=== PATIENT | female | born 1990 ===

== ENCOUNTER 2019-08-03 05:34 | Inpatient (IN) | payer OTHER ==
--- OUTSIDE RECORDS SUMMARY | 2019-08-03 05:36 | XMS REPORT ---
:1990 Author Organization [facility] t Address [address] [place] [address] Care Team Providers Name Role Phone Stella Brennan Attending Clinician [phone] Doctor Unassigned, Name Attending Clinician Unavailable Problems This patient has no known problems. Allergies, Adverse Reactions, Alerts This patient has no known allergies or adverse reactions. Medications This patient has no known medications. Procedures This patient has no known procedures. Encounters Start End Encounter Admission Attending Care Care Encounter Source Date/Time Date/Time Type Type Clinicians Facility Department ID 2019-07-30 2019-07-30 Routine JULISSA Hanley [id number] 14:33:32 15:19:14 Stella C DRUG ABUSE PROGRAM COORDINATOR [id number] Visit REGIONAL [id number] MATERNAL [id number] & CHILD 107 [facility] 2019-07-22 2019-07-22 Routine Dayan DCLEONIDES [id number] 09:08:09 09:23:09 Stella C DRUG ABUSE PROGRAM COORDINATOR [id number] Visit REGIONAL [id number] MATERNAL [id number] & CHILD 107 [facility] 2019-06-04 2019-06-04 Telemedici JULISSA Hanley [id number] 15:41:58 16:51:51 ne Visit Stella C DRUG ABUSE PROGRAM COORDINATOR [id number] REGIONAL [id number] MATERNAL [id number] & CHILD 107 [facility] 2019-05-21 2019-05-21 Orders Doctor KELLY [id number] 00:00:00 00:00:00 Only Unassigned, MELODY [id number] [place] [facility] [id number] Results This patient has no known results.
--- OUTSIDE RECORDS SUMMARY | 2019-08-03 05:37 | XMS REPORT | Summary of Care ---
:1990 Author Organization [facility] Address [address] [place] [address] Care Team Providers Name Role Phone Stella Hanley [facility] Primary Care Provider [phone] Reason for Visit Reason Comments Care Encounter Details Date Type Department Care Team Description 05/06/2019 Routine [facility]P- Shelly Hanley vision of high risk , antepartum (Primary Dx); [facility] 1108 [facility] [address] [facility] [address] [facility] [phone] [place] [address] Allergies No Known Allergiesdocumented as of this encounter (statuses as of 05/06/2019) Medications No known medicationsdocumented as of this encounter (statuses as of 05/06/2019) Active Problems Problem Noted Date Supervision of high-risk 12/18/2018 Multiparity 12/18/2018 Over weight 12/18/2018 Estimated Date of Delivery Comments Yes 08/07/2019 Based on last menstr ual period of 10/31/2018 documented as of this encounter (statuses as of 05/06/2019) Social History Tobacco Use Types Packs/Day Years Used Date Never Smoker Smokeless Tobacco: Never Used Alcohol Use Drinks/Week oz/Week Comments Never Alcohol Habits Answer Date Recorded How often do you have a drink containing alcohol? Never 12/18/2018 How many drinks containing alcohol do you have on a typical Not asked day when you are drinking? How often do you have six or more drinks on one occasion? No t asked Estimated Date of Delivery Comments Yes 08/07/2019 Based on last menstr ual period of 10/31/2018 Sex Assigned at Date Recorded Not on file Job Start Date Occupation Industry Not on file Not on file Not on file Travel History Travel Start Travel End No recent travel history available. documented as of this encounter Last Filed Vital Signs Vital Sign Reading Time Taken Comments Blood Pressure 82/57 05/06/2019 2:38 PM VOIP ENGINEER Pulse 81 05/06/2019 2:18 PM VOIP ENGINEER Temperature 36.3 C (97.3 F) 05/06/2019 2:18 PM VOIP ENGINEER Respiratory Rate 16 05/06/2019 2:18 PM VOIP ENGINEER Oxygen Saturation - - Inhaled Oxygen Concentration - - Weight 66.8 kg (147 lb 4 oz) 05/06/2019 2:18 PM VOIP ENGINEER Height 152.4 cm (5') 05/06/2019 2:18 PM VOIP ENGINEER Body Mass Index 28.76 05/06/2019 2:18 PM VOIP ENGINEER documented in this encounter Progress Notes Stella Hanley, WHCNP - 05/06/2019 1:45 PM CST Chief complaint: Chief Complaint Patient presents with Care HPI CC: Follow Up Visit Henrietta Echevarria is a 28 year old, , or other female. Patient's last menstrual period was 10/31/2018. She is 26w5d with an intrauterine . Her estimated date of delivery is 08/07/2019, by Last Menstrual Period. She has no complaints today. She reports +FM and denies contractions, LOF and bleeding today. Histories OB History Para Term AB Living 2 1 1 1 SAB TAB Ectopic Multiple Live Births 1 # Outcome Date GA Lbr Sergo/2nd Weight Sex Delivery Anes PTL Lv 2 Current 1 Term 01/19/15 40w0d 6 lb (2.722 kg) M NORMAL SPONT LELO No past medical history on file. No family history on file. No family status information on file. No past surgical history on file. Social History Socioeconomic History Marital status: Spouse name: Not on file Number of children: Not on file Years of education: Not on file Highest education level: Not on file Occupational History Not on file Social Needs Financial resource strain: Not on file Food insecurity: Worry: Not on file Inability: Not on file Transportation needs: Medical: Not on file Non-medical: Not on file Tobacco Use Smoking status: Never Smoker Smokeless tobacco: Never Used Substance and Sexual Activity Alcohol use: Never Frequency: Never Drug use: Never Sexual activity: Yes Partners: Male control/protection: None Comment: Last intercourse: 12/10/2018 Lifestyle Physical activity: Days per week: Not on file Minutes per session: Not on file Stress: Not on file Relationships Social connections: Talks on phone: Not on file Gets together: Not on file Attends jainism service: Not on file Active member of club or organization: Not on file Attends meetings of clubs or organizations: Not on file Relationship status: Not on file Intimate partner violence: Fear of current or ex partner: Not on file Emotionally abused: Not on file Physically abused: Not on file Forced sexual activity: Not on file Other Topics Concern Not on file Social History Narrative Patient lives with son, patient feels safe at home. Not cats. Social History Substance and Sexual Activity Sexual Activity Yes Partners: Male control/protection: None Comment: Last intercourse: 12/10/2018 Labs Labs are pending. and Routine Visit on 04/16/2019 Component Date Value POCT U SP GRAV 04/16/2019 . POCT PH U 04/16/2019 . POCT U LEUK EST 04/16/2019 . POCT U NIT 04/16/2019 . POCT U PROT 04/16/2019 Trace POCT U GLU 04/16/2019 Neg POCT U KETONE 04/16/2019 . POCT U UROBILI 04/16/2019 . POCT U BILI 04/16/2019 . POCT U BLD 04/16/2019 . Routine Visit on 03/19/2019 Component Date Value POCT U SP GRAV 03/19/2019 . POCT PH U 03/19/2019 . POCT U LEUK EST 03/19/2019 . POCT U NIT 03/19/2019 . POCT U PROT 03/19/2019 Trace POCT U GLU 03/19/2019 Neg POCT U KETONE 03/19/2019 . POCT U UROBILI 03/19/2019 . POCT U BILI 03/19/2019 . POCT U BLD 03/19/2019 . Radiology No new radiology. Allergies Henrietta has No Known Allergies. Medications Henrietta currently has no medications in their medication list. Review of Systems Constitutional: Negative. HENT: Negative. Eyes: Negative. Respiratory: Negative. Breasts: Negative. Cardiovascular: Negative. Gastrointestinal: Negative. Genitourinary: Negative. Musculoskeletal: Negative. Skin: Negative. Neurological: Negative. Psychiatric/Behavioral: Negative. Endocrine: Endocrine negative BP (!) 82/57 (BP Location: Right arm, Patient Position: Sitting, BP CUFF SIZE: Adult Medium) | Pulse 81 | Temp 36.3 C (97.3 F) (Oral) | Resp 16 | Ht 5' (1.524 m) | Wt 147 lb 4 oz (66.8 kg) | LMP 10/31/2018 | BMI 28.76 kg/m Pregravid BMI: 26.8 Physical Exam PHYSICAL: General Exam: Neurological: Normal Abdomen: Normal gravid Extremities: Normal Pelvic Exam: Uterus: 25 Weeks Assessment/Plan Return to clinic in 2 weeks. Denies zika virus risk, signs and symptoms such as fever,rash,joint pain, conjunctivitis (red eyes),muscle pain, headaches; outside [place] travel to areas affected by zika, and FOB exposure to zika. Educated on use of mosquito repellent. Supervision of high risk , antepartum (primary encounter diagnosis) Multiparity Comment: routine Plan: POCT URINALYSIS W SPECIFIC GRAVITY, Glucose 1 Hour Post Prandial, CBC with Differential, HIV 1/2 AG-AB WITH REFLEX, GALV ONLY - SYPHILIS IGG/IGM, TDAP VACCINE, >11 YRS, IM (Do not give before 20 weeks), CBC WITH DIFFERENTIAL This visit did not involve counseling and coordination that comprised more than 50% of the visit time. AUDIE Stroud 05/06/2019 2:46 PM ENGINEER documented in this encounter Plan of Treatment Date Type Specialty Care Team Description 05/06/2019 Formula Room Worker Visit Maternal Stella Hanley WHCNP [address] [place], [place] [address] [phone] 05/21/2019 Routine Visit OB Satellites Rosa Hanley WHCNP [address] [place], [place] [address] [phone] Name Type Priority Associated Diagnoses Order S chedule Glucose 1 Hour Post LAB Routine Supervision of high O rdered: Prandial risk , 05/06/2019 antepartum CBC with Differential LAB Routine Supervision of high Ordered: risk , 05/06/2019 antepartum HIV 1/2 AG-AB WITH LAB Routine Supervision of high Ex pected: REFLEX risk , 05/19/2019, antepartum Expires: 05/06/2020 GALV ONLY - SYPHILIS LAB Routine Supervision of high Expected: IGG/IGM risk , 05/19/2019, antepartum Expires: 05/06/2020 TDAP VACCINE, >11 YRS, IMMUNIZATION/I Routine Supervision of igh Expected: IM (Do not give before NJECTION risk , , 20 weeks) antepartum Expires: 06/03/2019 CBC WITH DIFFERENTIAL LAB Routine Supervision of high Ordered: risk , 05/06/2019 antepartum Health Maintenance Due Date Last Done Comments DTaP,Tdap,and Td Vaccines (1 - 05/06/2020 P ostponed from 2000 Tdap) (Alternative Yfn delines) INFLUENZA VACCINE (#1) 2020 Postponed from 11/10/2018 (Refused) PAP SMEAR 12/18/2021 12/18/2018 PNEUMOCOCCAL 0-64 YEARS COMBINED Aged Out No longer eligible based on SERIES patient's age to complete this topic documented as of this encounter Procedures Procedure Name Priority Date/Time Associated Diagnosis Comme nts POCT URINALYSIS Routine 05/06/2019 2:20 PM Supervision of [facility] Results for this VOIP ENGINEER risk , procedure ar e in antepartum the results section. documented in this encounter Results POCT URINALYSIS W SPECIFIC GRAVITY (05/06/2019 2:20 PM VOIP ENGINEER) Pathologist Sig nature POCT U SP GRAV . 1.005 - 1.025 mg/dl POCT PH U . 5 - 8 mg/dl POCT U LEUK EST . Negative - Negative POCT U NIT . Negative - Negative POCT U PROT Trace Negative - Negative POCT U GLU Neg Negative - Negative POCT U KETONE . Negative - Negative POCT U UROBILI . 0.2 - 1 mg/dl POCT U BILI . Negative - Negative POCT U BLD . Negative - Negative POCT U COLOR POCT U APPEAR Specimen Urine - URINE, CLEAN CATCH documented in this encounter Visit Diagnoses Diagnosis Supervision of high risk , ante - Primary Multiparity documented in this encounter Insurance Payer Benefit Plan / Subscriber ID Effective Phone Address T e Group Dates [facility] [id number] 2019-Danny [phone] [address] [employer] [phone] [place] [address] documented as of this encounter Advance Directives Name Relationship Healthcare Agent Relationship Co mmunication Pop Echevarria Friend Primary healthcare agent "
--- OUTSIDE RECORDS SUMMARY | 2019-08-03 05:37 | XMS REPORT | Summary of Care ---
:1990 Author Organization [facility] Address [address] [place] [address] Care Team Providers Name Role Phone Stella Hanley [facility] Primary Care Provider [phone] Reason for Visit Reason Comments ULTRASOUND (Routine) Status Reason Specialty Diagnoses / Referred By Referred To Procedures Contact Contact Closed OG-OBSTETRICS & Diagnoses Recheck Left ventricle in 4 weeks, not well seen Dave Garcia, Rodrigo ltrasound GYNECOLOGY / Procedures CONSULT MATERNAL MEDICINE ULTRASOUND ULTRASOUND 45 1108 [facility] Maternal [address] [facility] Medicine [id number] [place] [address] Phone: Fax: Encounter Details Date Type Department Care Team Description 05/06/2019 Maintenance Supervisor Visit [facility] Duc Hanley, [facility] [address] [place] [address] Encounter for other Ultrasound- [place] Kelvin Roa MD [address] [place] [address] screening [address] [place] [address] Allergies No Known Allergiesdocumented as of this [...] of this encounter Last Filed Vital Signs Not on filedocumented in this encounter Plan of Treatment Date Type Specialty Care Team Description 05/21/2019 Routine Visit OB Satellites Rosa Hanley, [facility] [address] [place], [place] [address] [phone] Health Maintenance Due Date Last Done Comments DTaP,Tdap,and Td Vaccines (1 - 05/06/2020 P ostponed from 2000 Tdap) (Alternative Yfn delines) INFLUENZA VACCINE (#1) 2020 Postponed from 11/10/2018 (Refused) PAP SMEAR 12/18/2021 12/18/2018 PNEUMOCOCCAL 0-64 YEARS COMBINED Aged Out No longer eligible based on SERIES patient's age to complete this topic documented as of this encounter Results Not on filedocumented in this encounter Visit Diagnoses Diagnosis Encounter for other screening follow-up documented in this encounter Insurance Payer Benefit Plan / Subscriber ID Effective Phone Address T [facility] Group Dates [facility] [id number] 2019-Preskimberlee [phone] [address] [employer] [facility] [phone] [place] [address] documented as of this encounter Advance Directives Name Relationship Healthcare Agent Relationship Co mmunication Pop Echevarria Friend Primary healthcare agent
--- OUTSIDE RECORDS SUMMARY | 2019-08-03 05:38 | XMS REPORT | Summary of Care ---
:1990 Author Organization [facility] Address [address] [place] [address] Care Team Providers Name Role Phone Stella Hanley [facility] Primary Care Provider [phone] Reason for Visit Reason Comments Care Encounter Details Date Type Department Care Team Description 05/06/2019 Routine [facility]P- Shelly Hanley vision of high risk , antepartum (Primary Dx); [facility] 1108 [facility] [address] [facility] [address] [facility] [phone] [place] [address] Allergies No Known Allergiesdocumented as [...] Comments Blood Pressure 82/57 05/06/2019 2:38 PM DISTRIBUTION ASSOCIATE Pulse 81 05/06/2019 2:18 PM DISTRIBUTION ASSOCIATE Temperature 36.3 C (97.3 F) 05/06/2019 2:18 PM DISTRIBUTION ASSOCIATE Respiratory Rate 16 05/06/2019 2:18 PM DISTRIBUTION ASSOCIATE Oxygen Saturation - - Inhaled Oxygen Concentration - - Weight 66.8 kg (147 lb 4 oz) 05/06/2019 2:18 PM DISTRIBUTION ASSOCIATE Height 152.4 cm (5') 05/06/2019 2:18 PM DISTRIBUTION ASSOCIATE Body Mass Index 28.76 05/06/2019 2:18 PM DISTRIBUTION ASSOCIATE documented in this encounter Progress Notes Stella [...] file Gets together: Not on file Attends quaker service: Not on file Active member of [...] visit time. AUDIE Stroud 05/06/2019 2:46 PM RIBUTION ASSOCIATE documented in this encounter Plan of Treatment Date Type Specialty Care Team Description 05/21/2019 Routine Visit OB Satellites Rosa Hanley [facility]NP [address] [place], [place] [address] [phone] Name Type Priority Associated Diagnoses Order S [...] VACCINE, >11 YRS, IMMUNIZATION/I Routine Supervision of h igh Expected: IM (Do not give before [...] URINALYSIS Routine 05/06/2019 2:20 PM Supervision of [facility] Results for this DISTRIBUTION ASSOCIATE risk , procedure ar e in antepartum the results section. documented in this encounter Results POCT URINALYSIS W SPECIFIC GRAVITY (05/06/2019 2:20 PM DISTRIBUTION ASSOCIATE) Pathologist Sig nature POCT U SP GRAV [...] / Subscriber ID Effective Phone Address T ype Group Dates [facility] [id number] 2019-Danny [phone] [address] [employer] [phone] [place] [address] documented as of this encounter Advance Directives Name Relationship Healthcare Agent Relationship Co mmunication Pop Echevarria Friend Primary healthcare agent "
--- OUTSIDE RECORDS SUMMARY | 2019-08-03 05:38 | XMS REPORT | Summary of Care ---
:1990 Author Organization [facility] Address [address] [place] [address] Care Team Providers Name Role Phone Stella Hanley [facility] Primary Care Provider [phone] Encounter Details Date Type Department Care Team Description 05/06/2019 Abstract [facility] Stella Gal[place], [address] [place] [address] [address] [facility] [phone] [place], [place] [address] [phone] Allergies No Known Allergiesdocumented as of this [...] 05/21/2019 Routine Visit OB Satellites Rosa Hanley, WHCNP [address] [place], [place] [address] [phone] Health Maintenance Due Date Last Done Comments DTaP,Tdap,and Td Vaccines (1 - 05/06/2020 P ostponed from 2000 Tdap) (Alternative Yfn delines) INFLUENZA VACCINE (#1) 2020 Postponed from 11/10/2018 (Refused) PAP SMEAR 12/18/2021 12/18/2018 PNEUMOCOCCAL 0-64 YEARS COMBINED Aged Out No longer eligible based on SERIES patient's age to complete this topic documented as of this encounter Results Not on filedocumented in this encounter Insurance Payer Benefit Plan / Subscriber ID Effective Phone Address T e Group Dates [facility] [id number] 2019-Danny [phone] [address] [employer] [address] [facility] [phone] [place] [address] documented as of this encounter Advance Directives Name Relationship Healthcare Agent Relationship Co mmunication Pop Echevarria Friend Primary healthcare agent
--- OUTSIDE RECORDS SUMMARY | 2019-08-03 05:38 | XMS REPORT | Summary of Care ---
:1990 Author Organization [facility] Address [address] [place] [address] Care Team Providers Name Role Phone Stella Hanley [facility] Primary Care Provider [phone] Reason for Visit Reason Comments Care Encounter Details Date Type Department Care Team Description 05/06/2019 Routine [facility] RMCHP- Shelly Hanley vision of high risk , antepartum (Primary Dx); [facility] [address] [facility] [address] [facility] [phone] [facility] [phone] [place] [address] Allergies No Known Allergiesdocumented as [...] Comments Blood Pressure 82/57 05/06/2019 2:38 PM FILM INSPECTOR Pulse 81 05/06/2019 2:18 PM FILM INSPECTOR Temperature 36.3 C (97.3 F) 05/06/2019 2:18 PM FILM INSPECTOR Respiratory Rate 16 05/06/2019 2:18 PM FILM INSPECTOR Oxygen Saturation - - Inhaled Oxygen Concentration - - Weight 66.8 kg (147 lb 4 oz) 05/06/2019 2:18 PM FILM INSPECTOR Height 152.4 cm (5') 05/06/2019 2:18 PM FILM INSPECTOR Body Mass Index 28.76 05/06/2019 2:18 PM FILM INSPECTOR documented in this encounter Progress Notes Stella [...] file Gets together: Not on file Attends mormonism service: Not on file Active member of [...] visit time. AUDIE Stroud 05/06/2019 2:46 PM INSPECTOR documented in this encounter Plan of Treatment Date Type Specialty Care Team Description 05/21/2019 Routine Visit OB Satellites Rosa Hanley [facility]CNP [address] [place], [place] [address] [phone] Name Type Priority Associated Diagnoses Date/Ti me Glucose 1 Hour Post LAB Routine Supervision of high georgiana vides 05/06/2019 3:40 PM Prandial , antepartum FILM INSPECTOR CBC with Differential LAB Routine Supervision of high risk 05/06/2019 3:40 PM , antepartum FILM INSPECTOR CBC WITH DIFFERENTIAL LAB Routine Supervision of high risk 05/06/2019 3:40 PM , antepartum FILM INSPECTOR Name Type Priority Associated Diagnoses Order S chedule HIV 1/2 AG-AB WITH LAB Routine Supervision of high Ex pected: REFLEX risk , 05/19/2019, antepartum Expires: 2020 GALV ONLY - SYPHILIS LAB Routine Supervision of high Expected: IGG/IGM risk , 05/19/2019, antepartum Expires: 2020 TDAP VACCINE, >11 IMMUNIZATION/IN Routine Supervision of high Expected: YRS, IM (Do not give JECTION risk , 11/2019, before 20 weeks) antepartum Expires: Health Maintenance Due Date Last Done Comments [...] URINALYSIS Routine 05/06/2019 2:20 PM Supervision of [facility] Results for this FILM INSPECTOR risk , procedure ar e in antepartum the results section. documented in this encounter Results POCT URINALYSIS W SPECIFIC GRAVITY (05/06/2019 2:20 PM FILM INSPECTOR) Pathologist Sig nature POCT U SP GRAV [...] / Subscriber ID Effective Phone Address T jono Group Dates HIM [facility] [id number] 2019-Danny [phone] [address] [employer] [phone] [place] [address] documented as of this encounter Advance Directives Name Relationship Healthcare Agent Relationship Co mmunication Pop Echevarria Friend Primary healthcare agent "
--- OUTSIDE RECORDS SUMMARY | 2019-08-03 05:39 | XMS REPORT | Summary of Care ---
:1990 Author Organization [facility] Address [address] [place] [address] Care Team Providers Name Role Phone Stella Hanley [facility] Primary Care Provider [phone] Reason for Visit Reason Comments Anemia Encounter Details Date Type Department Care Team Description 05/07/2019 [facility], Anemia [address] [place] [address] [phone] [place], [place] [address] [phone] Allergies No Known Allergiesdocumented as of this encounter (statuses as of 05/07/2019) Medications Medication Sig Dispensed Refills Start Date End Date Status ferrous sulfate 325 mg Take 1 tablet by 60 tablet 3 05/07/2019 Active (65 mg iron) mouth 2 (two) tabletIndications: times daily. Anemia of mother in , antepartum ascorbic acid, vitamin Take 1 tablet by 90 tablet 2 05/07/2019 Active C, 500 mg mouth 3 (three) tabletIndications: times daily. Anemia of mother in , antepartum documented as of this encounter (statuses as of 05/07/2019) Active Problems Problem Noted Date Anemia of mother in , antepartum 05/07/2019 Supervision of high-risk 12/18/2018 Multiparity 12/18/2018 Over weight 12/18/2018 Estimated Date of Delivery Comments Yes 08/07/2019 Based on last menstr ual period of 10/31/2018 documented as of this encounter (statuses as of 05/07/2019) Social History Tobacco Use Types Packs/Day Years [...] Description 05/21/2019 Routine Visit OB Satellites Rosa Hanlye, WHCNP [address] [place], [place] [address] [phone] Health Maintenance Due Date Last Done Comments [...] filedocumented in this encounter Visit Diagnoses Diagnosis Anemia of mother in , antepartu m - Primary Anemia, antepartum documented in this encounter Insurance Payer Benefit Plan / Subscriber ID Effective Phone Address T ype Group Dates [facility] [id number] 2019-Danny [phone] Risk I/OO HEALTH [employer] HEALTH CHOICE nt [phone] [place] [address] documented as of this encounter Advance Directives Name Relationship Healthcare Agent Relationship Co mmunication Pop Echevarria Friend Primary healthcare agent
--- OUTSIDE RECORDS SUMMARY | 2019-08-03 05:39 | XMS REPORT | Summary of Care ---
:1990 Author Organization [facility] Address [address] [place] [address] Care Team Providers Name Role Phone Stella Hanley [facility] Primary Care Provider [phone] Reason for Visit Reason Comments Anemia Encounter Details Date Type Department Care Team Description 05/07/2019 Telephone [facility] ngletStella Ford, Anemia [address] [place] [address] [phone] [place], [place] [address] [phone] Allergies No Known Allergiesdocumented as of this [...] OB Satellites Rosa Hanley, WHCNP [address], [place] [address] [phone] Health Maintenance Due Date Last Done Comments [...] Effective Phone Address T ype Group Dates [facility] [id number] 2019-Danny [phone] [address] [employer] [facility] [employer] HEALTH CHOICE nt [phone] [place] [address] documented as of this encounter Advance Directives Name Relationship Healthcare Agent Relationship Co mmunication Pop Echevarria Friend Primary healthcare agent
--- OUTSIDE RECORDS SUMMARY | 2019-08-03 05:40 | XMS REPORT | Summary of Care ---
:1990 Author Organization [facility] - Health Address [address] [place] [address] Care Team Providers Name Role Phone [facility] Primary Care Provider [phone] Encounter Details Date Type Department Care Team Description 04/14/2019 Orders Only [facility] Doctor Unassigned, No [address] [facility] Name [place] [id number] [address] [place] [address] Allergies No Known Allergiesdocumented as of this encounter (statuses as of 05/27/2019) Medications No known medicationsdocumented as of this encounter (statuses as of 05/27/2019) Active Problems Problem Noted Date Anemia of mother in , antepartum 05/07/2019 Supervision of high-risk 12/18/2018 Multiparity 12/18/2018 Over weight 12/18/2018 Estimated Date of Delivery Comments Yes 08/07/2019 Based on last menstr ual period of 10/31/2018 documented as of this encounter (statuses as of 05/27/2019) Social History Tobacco Use Types Packs/Day Years [...] Treatment Date Type Specialty Care Team Description 06/04/2019 Routine Visit OB Satellites Rosa Hanley, [facility] [address] [place], [place] [address] [phone] Health Maintenance Due Date Last Done Comments INFLUENZA VACCINE (#1) 2020 Postponed from 11/10/2018 (Refused) PAP SMEAR 12/18/2021 12/18/2018 DTaP,Tdap,and Td Vaccines (2 - 05/20/2029 05/21/2019 Td) PNEUMOCOCCAL 0-64 YEARS COMBINED Aged Out No longer eligible based on SERIES patient's age to complete this topic documented as of this encounter Procedures Procedure Name Priority Date/Time Associated Diagnosis Comme nts AUTHORIZATION FOR RELEASE Routine 04/14/2019 12:01 AM OF PHI GUNITE MIXER documented in this encounter Results Not on filedocumented in this encounter Insurance Payer Benefit Plan / Subscriber ID Effective Phone Address T e Group Dates [facility] [id number] 2019-Prese [phone] [employer] [facility] [employer] [phone] [place] [address] documented as of this encounter Advance Directives Name Relationship Healthcare Agent Relationship Co mmunication Pop Echevarria Friend Primary healthcare agent
--- OUTSIDE RECORDS SUMMARY | 2019-08-03 05:40 | XMS REPORT | Summary of Care ---
:1990 Author Organization [facility] Address [address] [place] [address] Care Team Providers Name Role Phone Stella Hanley [facility] Primary Care Provider [phone] Reason for Visit Reason Comments Care telehealth Encounter Details Date Type Department Care Team Description 06/04/2019 [facility]ley ervision of high risk in third trimester (Primary Dx); Tor Alcazar FRANKLIN Multiparity; [address] Anemia of mother in pregnanc y, antepartum [facility] [phone] [facility] [phone] [place] [address] Allergies No Known Allergiesdocumented as of this encounter (statuses as of 06/04/2019) Medications Medication Sig Dispensed Refills Start Date [...] as of this encounter (statuses as of 06/04/2019) Active Problems Problem Noted Date Anemia of mother in , antepartum 05/07/2019 Supervision of high-risk 12/18/2018 Multiparity 12/18/2018 Over weight 12/18/2018 Estimated Date of Delivery Comments Yes 08/07/2019 Based on last menstr ual period of 10/31/2018 documented as of this encounter (statuses as of 06/04/2019) Immunizations Name Administration Dates Next Due Tdap 05/21/2019 documented as of this encounter Social History Tobacco Use Types Packs/Day Years [...] Signs Not on filedocumented in this encounter Progress Notes Stella Hanley, [facility] - 06/04/2019 3:30 PM CDT TELEHEALTH NOTE Verbal consent obtained from Patient: Henrietta Echevarria for telehealth services provided below. Communication with patient was conducted via Telephone. Location of Patient: Home Location of Provider: Clinic Date of Service: 06/04/2019 Chief Complaint: visit HPI: Henrietta Echevarria is a 28 year old female with Past Medical History: Diagnosis Date Anemia of mother in , antepartum 05/07/2019 CC: Follow Up Visit Henrietta Echevarria is a 28 year old, , or other female. Patient's last menstrual period was 10/31/2018. She is 30w6d with an intrauterine . Her estimated date of delivery is 08/07/2019, by Last Menstrual Period. She has no complaints today. She reports +FM and denies contractions, LOF and bleeding today. Labs No new labs and Routine Visit on 05/21/2019 Component Date Value HIV 1/2 Ag-Ab with Reflex 05/21/2019 Negative HIV Semi-quantitative 05/21/2019 0.06 Syphilis IgG/IgM 05/21/2019 Non-reactive POCT U SP GRAV 05/21/2019 . POCT PH U 05/21/2019 . POCT U LEUK EST 05/21/2019 . POCT U NIT 05/21/2019 . POCT U PROT 05/21/2019 Trace POCT U GLU 05/21/2019 Neg POCT U KETONE 05/21/2019 . POCT U UROBILI 05/21/2019 . POCT U BILI 05/21/2019 . POCT U BLD 05/21/2019 . Routine Visit on 05/06/2019 Component Date Value POCT U SP GRAV 05/06/2019 . POCT PH U 05/06/2019 . POCT U LEUK EST 05/06/2019 . POCT U NIT 05/06/2019 . POCT U PROT 05/06/2019 Trace POCT U GLU 05/06/2019 Neg POCT U KETONE 05/06/2019 . POCT U UROBILI 05/06/2019 . POCT U BILI 05/06/2019 . POCT U BLD 05/06/2019 . GLUC 1 HR 05/06/2019 128 WBC 05/06/2019 9.12 RBC 05/06/2019 3.41* HGB 05/06/2019 8.9* HCT 05/06/2019 29.0* MCV 05/06/2019 85.0 MCH 05/06/2019 26.1 MCHC 05/06/2019 30.7* RDW-SD 05/06/2019 43.5 RDW-CV 05/06/2019 14.1 PLT 05/06/2019 228 MPV 05/06/2019 10.2 NRBC/100 WBC 05/06/2019 0.0 NRBC x10^3 05/06/2019 <0.01 GRAN MAT (NEUT) % 05/06/2019 57.1 IMM GRAN % 05/06/2019 0.70 LYMPH % 05/06/2019 28.8 MONO % 05/06/2019 10.1 EOS % 05/06/2019 2.6 BASO % 05/06/2019 0.7 GRAN MAT x10^3(ANC) 05/06/2019 5.21 IMM GRAN x10^3 05/06/2019 0.06 LYMPH x10^3 05/06/2019 2.63 MONO x10^3 05/06/2019 0.92 EOS x10^3 05/06/2019 0.24 BASO x10^3 05/06/2019 0.06 Routine Visit on 04/16/2019 Component Date Value [...] U BLD 03/19/2019 . Radiology No new radiology MEDICATIONS: No outpatient medications have been marked as taking for the 06/04/19 encounter (Telemedicine Visit) with Stella Hanley WHCNP. ROS Constitutional: negative Eyes: negative Ears: negative Nose/Sinuses: negative Mouth/Throat: negative Cardiovascular: negative Respiratory: negative Gastrointestinal: negative Genitourinary: negative Musculoskeletal: negative Integumentary: negative Neuro: negative Psych: negative Endocrine: negative Hem/Lymph: negative Allergy/Immunology: negative PHYSICAL: General Exam: Tele health visit Neurological: Normal Abdomen: Normal Gravid telehealth visit Extremities: Normal Pelvic Exam: Uterus: telehealth visit Weeks TELEHEALTH EXAM Constitutional: alert and in no distress Respiratory: breathing comfortably Neuro: answers questions appropriately Psych: normal affect ASSESSMENT/ PLAN Henrietta Echevarria is a 28 year old female with PMH as above presenting with: 1. Supervision of high risk in third trimester Multiparity Comment routine visit Plan: routine care 3. Anemia of mother in , antepartum Comment: reports taking pnv, iron,vit c Plan: continue iron, PNV and iron-rich foods After visit summary (AVS ) documentation will be available through [employer] for this encounter. A total of 5 minutes was spent on the Telephone with the patient. AUDIE Stroud documented in this encounter Plan of Treatment Health Maintenance Due Date Last Done Comments INFLUENZA VACCINE (#1) 2020 Postponed from 11/10/2018 (Refused) PAP SMEAR 12/18/2021 12/18/2018 DTaP,Tdap,and Td Vaccines (2 - 05/20/2029 05/21/2019 Td) PNEUMOCOCCAL 0-64 YEARS COMBINED Aged Out No longer eligible based on SERIES patient's age to complete this topic documented as of this encounter Results Not on filedocumented in this encounter Visit Diagnoses Diagnosis Supervision of high risk in ird trimester - Primary Unspecified high-risk Multiparity Anemia of mother in , antepartu m Anemia, antepartum documented in this encounter Insurance Payer Benefit Plan / Subscriber ID Effective Phone Address [facility] Group Dates [facility] [id number] 2019-[facility] [phone] [address] [employer] [facility] [employer] [facility] CHOICE [phone] [place] [address] documented as of this encounter Advance Directives Name Relationship Healthcare Agent Relationship Co mmunication Pop Echevarria Friend Primary healthcare agent
--- OUTSIDE RECORDS SUMMARY | 2019-08-03 05:40 | XMS REPORT | Summary of Care ---
:1990 Author Organization [facility] Address [address] [place] [address] Care Team Providers Name Role Phone Stella Hanley [facility] Primary Care Provider Reason for Visit Reason Comments Care Encounter Details Date Type Department Care Team Description 05/21/2019 Routine [facility], [facility] [address] [facility] [place] [address] [phone] Supervision of high risk , ante (Primary Dx); Visit Katherine Ayala, ENGINE WATCHMAN [address] [place] [address] [phone] Multiparity; [address] [facility] Anemia of mother in pregnanc y, antepartum; [place], [place] Over weight; [phone] Need for Tdap vaccination [phone] Allergies No Known Allergiesdocumented as of this encounter (statuses as of 05/21/2019) Medications Medication Sig Dispensed Refills Start Date [...] as of this encounter (statuses as of 05/21/2019) Active Problems Problem Noted Date Anemia of mother in , antepartum 05/07/2019 Supervision of high-risk 12/18/2018 Multiparity 12/18/2018 Over weight 12/18/2018 Estimated Date of Delivery Comments Yes 08/07/2019 Based on last menstr ual period of 10/31/2018 documented as of this encounter (statuses as of 05/21/2019) Immunizations Name Administration Dates Next Due Tdap [...] Sign Reading Time Taken Comments Blood Pressure 101/68 05/21/2019 3:22 PM CDT Pulse 92 05/21/2019 3:22 PM CDT Temperature 36.1 C (97 F) 05/21/2019 3:22 PM CDT Respiratory Rate 16 05/21/2019 3:22 PM CDT Oxygen Saturation - - Inhaled Oxygen Concentration - - Weight 66.9 kg (147 lb 8 oz) 05/21/2019 3:22 PM CDT Height 152.4 cm (5') 05/21/2019 3:22 PM CDT Body Mass Index 28.81 05/21/2019 3:22 PM CDT documented in this encounter Progress Notes Katherine Renteria, ENGINE WATCHMAN - 05/21/2019 3:00 PM CDT Chief complaint: Chief Complaint Patient presents with Care HPI CC: Follow Up Visit Henrietta Echevarria is a 28 year old, , or other female. Patient's last menstrual period was 10/31/2018. She is 28w6d with an intrauterine . Her estimated date of delivery is 08/07/2019, by Last Menstrual Period. She has no complaints today. She reports +FM and denies contractions, LOF and bleeding today. Will review labs and f/u as needed. OB/ER, PIH, PTL and movement precautions given. Patient denies current or past physical, sexual or emotional abuse. Histories OB History Para Term AB Living 2 1 1 1 SAB TAB Ectopic Multiple Live Births 1 # Outcome Date GA Lbr Sergo/2nd Weight Sex Delivery Anes PTL Lv 2 Current 1 Term 01/19/15 40w0d 6 lb (2.722 kg) M NORMAL SPONT LELO Past Medical History: Diagnosis Date Anemia of mother in , antepartum 05/07/2019 No family history on file. No family [...] file Gets together: Not on file Attends catholic service: Not on file Active member of [...] Last intercourse: 12/10/2018 Labs Labs are pending. Radiology No new radiology. Allergies Henrietta has No Known Allergies. Medications Henrietta has a current medication list which includes the following prescription(s): ascorbic acid (vitamin c) and ferrous sulfate. Review of Systems BP 101/68 (BP Location: Right arm, Patient Position: Sitting, BP CUFF SIZE: Adult Medium) | Pulse 92 | Temp 36.1 C (97 F) (Oral) | Resp 16 | Ht 5' (1.524 m) | Wt 147 lb 8 oz (66.9 kg) | LMP 10/31/2018 | BMI 28.81 kg/m Pregravid BMI: 26.8 Physical Exam Assessment/Plan Supervision of high risk , antepartum (primary encounter diagnosis) Multiparity Comment: Routine Visit Plan: HIV 1/2 AG-AB WITH REFLEX, GALV ONLY - SYPHILIS IGG/IGM, POCT URINALYSIS W SPECIFIC GRAVITY Denies zika virus risk, signs and symptoms such as fever,rash,joint pain, conjunctivitis (red eyes), muscle pain, headaches; outside [place] travel to areas affected by zika, and FOB exposure to zika.Educated on use of mosquito repellent. Anemia of mother in , antepartum Comment: patient states she is taking vitamins and iron pills daily. Plan: CBC done today Over weight Comment:BMi: 28.81 Plan: Patient encouraged to limit weight gain and advised to eat healthy diet, fruits, vegetables, increased fiber and water intake and protein low in fat. Encouraged exercise for 30 min everyday; begin regimen with caution to prevent injury. Encouraged to decrease BMI to <25. Need for Tdap vaccination Comment: per protocol Plan: TDAP VACCINE, >11 YRS, IM (Do not give before 20 weeks) Return to clinic in 2 weeks. Discussed treatment options. Medications as ordered. Reviewed patient instructions and provided printed copy. This visit did not involve counseling and coordination that comprised more than 50% of the visit time. BELKIS Durham 05/21/2019 3:42 PM Michi Montes RN - 05/21/2019 3:00 PM CDTPatient provided with 28 weeks packet; stressed the importance of the kick count of 10 x within 2 hours; patient verbalized understanding. Tdap given IM to left deltoid per aseptic tech; site massaged; band-aid applied; tolerated well; VISgiven and reviewed with patient at this time. Shared decision plan completed today. Reviewed s/s of labor. PHQ2 done at this time. Patient denies any complications at this time. Pt desires permanent sterilization. Discussed the 1/200 failure rate and the increased risk for ectopic with pt. Pt counseled on the risk of infection, hemorrhage, perforation to surrounding organs, reaction to anesthesia, and the high risk of regret with the procedure. Pt declines l taina term methods, including the iud and nexplanon. She is sure that she does not want any more children. Bilateral tubal ligation consent signed and copy given to pt. MICHI MONTES RN 05/21/2019 3:25 PM documented in this encounter Plan of Treatment Name Type Priority Associated Diagnoses Date/Ti me HIV 1/2 AG-AB WITH LAB Routine Supervision of high ri sk 05/21/2019 3:20 PM CDT REFLEX , antepartum GALV ONLY - SYPHILIS LAB Routine Supervision of high risk 05/21/2019 3:20 PM CDT IGG/IGM , antepartum Health Maintenance Due Date Last Done [...] Associated Diagnosis Comme nts POCT URINALYSIS Routine 05/21/2019 3:28 Supervision of high R esults for this PM CDT risk , procedure ar e in antepartum the results section. TDAP VACCINE, >11 Routine 05/21/2019 3:19 Need for Tdap YRS, IM PM CDT vaccination documented in this encounter Results POCT URINALYSIS W SPECIFIC GRAVITY (05/21/2019 3:28 PM CDT) Pathologist Sig nature POCT U SP GRAV [...] high risk , ante - Primary Multiparity Anemia of mother in , antepartu m Anemia, antepartum Over weight Overweight Need for Tdap vaccination Need for prophylactic vaccination with c ombined hlkukfbfew-fqbytlv-mgiigsttc (DTP) vaccine documented in this encounter Insurance Payer Benefit Plan / Subscriber ID Effective Phone Address [facility] Group Dates [facility] [id number] 2019-[facility] [phone] [address] O HEALTH [employer] HEALTH [facility] [phone] [place] [address] documented as of this encounter Advance Directives Name Relationship Healthcare Agent Relationship Co mmunication Pop Wale Friend Primary healthcare agent "
--- OUTSIDE RECORDS SUMMARY | 2019-08-03 05:41 | XMS REPORT | Summary of Care ---
:1990 Author Organization [facility] Address [address] [place] [address] Care Team Providers Name Role Phone Stella Hanley [facility] Primary Care Provider [phone] Reason for Visit Reason Comments Care telehealth Encounter Details Date Type Department Care Team Description 06/04/[address] [facility]ley ervision of high risk in third trimester (Primary Dx); Tor Alcazar [place]LIN Multiparity; [address] Anemia of mother in pregnanc y, antepartum [facility] [address] [facility] [phone] [place] [address] Allergies No Known Allergiesdocumented as [...] encounter Progress Notes Stella Han[facility], [facility] 06/04/2019 3:30 PM CDT TELEHEALTH NOTE [...] (AVS ) documentation will be available through [employer] for this encounter. A total of 5 [...] Plan / Subscriber ID Effective Phone Address [facility] Group Dates [facility] [id number] 2019-[facility] [phone] [address] [employer] HEALTH [employer] HEALTH CHOICE [phone] [place] [address] documented as of this encounter Advance Directives Name Relationship Healthcare Agent Relationship Co mmunication Pop Echevarria Friend Primary healthcare agent
--- OUTSIDE RECORDS SUMMARY | 2019-08-03 05:41 | XMS REPORT | Summary of Care ---
:1990 Author Organization [facility] Address [address] [place] [address] Care Team Providers Name Role Phone Stella Hanley [facility] Primary Care Provider [phone] Reason for Visit Reason Comments Care Encounter Details Date Type Department Care Team Description 07/22/2019 Routine [facility]- Dayan, Shelly vision of high risk , antepartum (Primary Dx); Visit Tor Alcazar FRANKLIN Multiparity; [address] Anemia of mother in pregnanc y, antepartum [facility] [address] [facility] [phone] [place] [address] Allergies No Known Allergiesdocumented as of this encounter (statuses as of 07/22/2019) Medications Medication Sig Dispensed Refills Start Date [...] as of this encounter (statuses as of 07/22/2019) Active Problems Problem Noted Date Anemia of mother in , antepartum 05/07/2019 Supervision of high-risk 12/18/2018 Multiparity 12/18/2018 Over weight 12/18/2018 Estimated Date of Delivery Comments Yes 08/07/2019 Based on last menstr ual period of 10/31/2018 documented as of this encounter (statuses as of 07/22/2019) Immunizations Name Administration Dates Next Due Tdap [...] Travel End No recent travel history available. COVID-19 Exposure Response Date Recorded In the last month, have you been in contact with No / Unsure 07/22/2019 9:21 AM CDT someone who was confirmed or suspected to have Coronavirus / COVID-19? documented as of this encounter Last Filed Vital Signs Vital Sign Reading Time Taken Comments Blood Pressure 110/70 07/22/2019 9:21 AM CDT Pulse 98 07/22/2019 9:21 AM CDT Temperature 36.6 C (97.9 F) 07/22/2019 9:21 AM CDT Respiratory Rate 16 07/22/2019 9:21 AM CDT Oxygen Saturation - - Inhaled Oxygen Concentration - - Weight 69 kg (152 lb 2 oz) 07/22/2019 9:21 AM CDT Height 152.4 cm (5') 07/22/2019 9:21 AM CDT Body Mass Index 29.71 07/22/2019 9:21 AM CDT documented in this encounter Progress Notes Stella Hanley, WHCNP - 07/22/2019 9:30 AM CDT Chief complaint: Chief Complaint Patient presents with Care HPI CC: Follow Up Visit Henrietta Echevarria is a 28 year old, , or other female. Patient's last menstrual period was 10/31/2018. She is 37w5d with an intrauterine . Her estimated date [...] file Gets together: Not on file Attends adventism service: Not on file Active member of [...] control/protection: None Comment: Last intercourse: 12/10/2018 Labs No new labs and Routine Visit [...] x10^3 05/06/2019 0.24 BASO x10^3 05/06/2019 0.06 Radiology No new radiology. Allergies Henrietta has No Known Allergies. Medications Henrietta has a current medication list which includes the following prescription(s): ascorbic acid (vitamin c) and ferrous sulfate. Review of Systems Constitutional: Negative. HENT: Negative. Eyes: Negative. Respiratory: Negative. Breasts: Negative. Cardiovascular: Negative. Gastrointestinal: Negative. Genitourinary: Negative. Musculoskeletal: Negative. Skin: Negative. Neurological: Negative. Psychiatric/Behavioral: Negative. Endocrine: Endocrine negative BP 110/70 (BP Location: Right arm, Patient Position: Sitting, BP CUFF SIZE: Adult Medium) | Pulse 98 | Temp 36.6 C (97.9 F) (Oral) | Resp 16 | Ht 5' (1.524 m) | Wt 152 lb 2 oz (69 kg) | LMP 10/31/2018 | BMI 29.71 kg/m Pregravid BMI: 26.8 Physical Exam PHYSICAL: General Exam: Neurological: Normal Abdomen: Normal gravid Extremities: Normal Pelvic Exam: Uterus: 37 Weeks Assessment/Plan Return to clinic in 1 weeks. Denies zika virus risk, signs and symptoms such as fever,rash,joint pain, conjunctivitis (red eyes),muscle pain, headaches; outside [place] travel to areas affected by zika, and FOB exposure to zika. Educated on use of mosquito repellent. Supervision of high risk , antepartum (primary encounter diagnosis) Multiparity Comment: routine Plan: POCT URINALYSIS W SPECIFIC GRAVITY, CBC WITH DIFF, GROUP B STREPTOCOCCUS BY PCR, CBC WITH DIFFERENTIAL Anemia of mother in , antepartum Comment: continue iron, PNV and iron-rich foods Plan: This visit did not involve counseling and coordination that comprised more than 50% of the visit time. AUDIE Stroud 07/22/2019 9:45 AM documented in this encounter Plan of Treatment Name Type Priority Associated Diagnoses Date/Ti me CBC WITH DIFF LAB Routine Supervision of high risk 9:43 AM , antepartum CDT GROUP B STREPTOCOCCUS BY LAB Routine Supervision of h igh risk 07/22/2019 9:43 AM PCR , antepartum CDT CBC WITH DIFFERENTIAL LAB Routine Supervision of high risk 07/22/2019 9:43 AM , antepartum CDT Health Maintenance Due Date Last Done Comments INFLUENZA VACCINE (Season Ended) 2020 Postponed from 11/11/2019 (Refused) PAP SMEAR 12/18/2021 12/18/2018 DTaP,Tdap,and Td Vaccines (2 - 05/20/2029 05/21/2019 Td) PNEUMOCOCCAL 0-64 YEARS COMBINED Aged Out No longer eligible based on SERIES patient's age to complete this topic documented as of this encounter Procedures Procedure Name Priority Date/Time Associated Diagnosis Comme nts POCT URINALYSIS Routine 07/22/2019 9:34 AM Supervision of [facility] h Results for this CDT risk , procedure ar e in antepartum the results section. documented in this encounter Results POCT URINALYSIS W SPECIFIC GRAVITY (07/22/2019 9:34 AM CDT) Pathologist Sig nature POCT U SP [...] Effective Phone Address T e Group Dates [facility] [id number] 2019-Prese [phone] [address] HMO HEALTH CHOICE HEALTH CHOICE nt [phone] [place] [address] documented as of this encounter Advance Directives Name Relationship Healthcare Agent Relationship Co mmunication Pop Echevarria Friend Primary healthcare agent "
--- OUTSIDE RECORDS SUMMARY | 2019-08-03 05:41 | XMS REPORT | Summary of Care ---
:1990 Author Organization [facility] Address [address] [place] [address] Care Team Providers Name Role Phone Stella Hanley [facility] Primary Care Provider Reason for Visit Reason Comments Care Encounter Details Date Type Department Care Team Description 07/30/2019 Routine [facility]- Dayan, Shelly vision of high risk , antepartum (Primary Dx); Visit Tor Alcazar [facility] Multiparity; [address] Anemia of mother in pregnanc y, antepartum [facility] [phone] [facility] [phone] [place] [address] Allergies No Known Allergiesdocumented as of this encounter (statuses as of 07/30/2019) Medications Medication Sig Dispensed Refills Start Date [...] as of this encounter (statuses as of 07/30/2019) Active Problems Problem Noted Date Anemia of mother in , antepartum 05/07/2019 Supervision of high-risk 12/18/2018 Multiparity 12/18/2018 Over weight 12/18/2018 Estimated Date of Delivery Comments Yes 08/07/2019 Based on last menstr ual period of 10/31/2018 documented as of this encounter (statuses as of 07/30/2019) Immunizations Name Administration Dates Next Due Tdap [...] been in contact with No / Unsure 07/30/2019 2:42 PM CDT someone who was confirmed or suspected to have Coronavirus / COVID-19? documented as of this encounter Last Filed Vital Signs Vital Sign Reading Time Taken Comments Blood Pressure 106/66 07/30/2019 2:43 PM CDT Pulse 93 07/30/2019 2:43 PM CDT Temperature 36.7 C (98 F) 07/30/2019 2:43 PM CDT Respiratory Rate 16 07/30/2019 2:43 PM CDT Oxygen Saturation - - Inhaled Oxygen Concentration - - Weight 70.5 kg (155 lb 7 oz) 07/30/2019 2:43 PM CDT Height 152.4 cm (5') 07/30/2019 2:43 PM CDT Body Mass Index 30.36 07/30/2019 2:43 PM CDT documented in this encounter Progress Notes Stella Hanley, WHCNP - 07/30/2019 2:30 PM CDT Chief complaint: Chief Complaint Patient presents with Care HPI CC: Follow Up Visit Henrietta Echevarria is a 29 year old, , or other female. Patient's last menstrual period was 10/31/2018. She is 38w6d with an intrauterine . Her estimated date [...] file Gets together: Not on file Attends voodoo service: Not on file Active member of [...] No new labs and Routine Visit on 07/22/2019 Component Date Value POCT U SP GRAV 07/22/2019 . POCT PH U 07/22/2019 . POCT U LEUK EST 07/22/2019 . POCT U NIT 07/22/2019 . POCT U PROT 07/22/2019 Trace POCT U GLU 07/22/2019 Neg POCT U KETONE 07/22/2019 . POCT U UROBILI 07/22/2019 . POCT U BILI 07/22/2019 . POCT U BLD 07/22/2019 . Group B Streptococcus by* 07/22/2019 Negative WBC 07/22/2019 8.75 RBC 07/22/2019 4.20 HGB 07/22/2019 11.0* HCT 07/22/2019 35.1* MCV 07/22/2019 83.6 MCH 07/22/2019 26.2 MCHC 07/22/2019 31.3* RDW-SD 07/22/2019 50.4* RDW-CV 07/22/2019 16.7* PLT 07/22/2019 219 MPV 07/22/2019 10.4 NRBC/100 WBC 07/22/2019 0.0 NRBC x10^3 07/22/2019 <0.01 GRAN MAT (NEUT) % 07/22/2019 64.9 IMM GRAN % 07/22/2019 0.70 LYMPH % 07/22/2019 22.6 MONO % 07/22/2019 9.8 EOS % 07/22/2019 1.4 BASO % 07/22/2019 0.6 GRAN MAT x10^3(ANC) 07/22/2019 5.68 IMM GRAN x10^3 07/22/2019 0.06 LYMPH x10^3 07/22/2019 1.98 MONO x10^3 07/22/2019 0.86 EOS x10^3 07/22/2019 0.12 BASO x10^3 07/22/2019 0.05 Routine Visit on 05/21/2019 Component Date Value [...] Negative. Psychiatric/Behavioral: Negative. Endocrine: Endocrine negative BP 106/66 (BP Location: Right arm, Patient Position: Sitting, BP CUFF SIZE: Adult Medium) | Pulse 93 | Temp 36.7 C (98 F) (Oral) | Resp 16 | Ht 5' (1.524 m) | Wt 155 lb 7 oz (70.5 kg) | LMP 10/31/2018 | BMI 30.36 kg/m Pregravid BMI: 26.8 Physical Exam PHYSICAL: General Exam: Neurological: Normal Abdomen: Normal gravid Extremities: Normal Pelvic Exam: Uterus: 38 Weeks Assessment/Plan Return to clinic in 1 weeks. Denies zika virus risk, signs and symptoms such as fever,rash,joint pain, conjunctivitis (red eyes),muscle pain, headaches; outside [place] travel to areas affected by zika, and FOB exposure to zika. Educated on use of mosquito repellent. Supervision of high risk , antepartum (primary encounter diagnosis) Multiparity Comment: routine Plan: POCT URINALYSIS W SPECIFIC GRAVITY Anemia of mother in , antepartum Comment: continue iron, PNV and iron-rich foods Plan: as needed mgmt This visit did not involve counseling and coordination that comprised more than 50% of the visit time. AUDIE Stroud 07/30/2019 3:19 PM documented in this encounter Plan of Treatment Date Type Specialty Care Team Description 08/05/2019 Routine Visit [facility] Rosa Hanley WHCNP [address], [place] [address] [phone] Health Maintenance Due Date Last Done Comments INFLUENZA VACCINE (Season Ended) 2020 Postponed from 11/11/2019 (Refused) PAP SMEAR 12/18/2021 12/18/2018 DTaP,Tdap,and Td Vaccines (2 - 05/20/2029 05/21/2019 Td) PNEUMOCOCCAL 0-64 YEARS COMBINED Aged Out No longer eligible based on SERIES patient's age to complete this topic documented as of this encounter Procedures Procedure Name Priority Date/Time Associated Diagnosis Comme nts POCT URINALYSIS Routine 07/30/2019 2:46 PM Supervision of tamera wyatt Results for this CDT risk , procedure ar e in antepartum the results section. documented in this encounter Results POCT URINALYSIS W SPECIFIC GRAVITY (07/30/2019 2:46 PM CDT) Pathologist Sig nature POCT U [...] Effective Phone Address T e Group Dates [facility] [id number] 2019-Prese [phone] [address] [facility] [employer] nt [phone] [place] [address] [address] (Home) [place] [phone] documented as of this encounter Advance Directives Name Relationship Healthcare Agent Relationship Co mmunication Pop Echevarria Friend Primary healthcare agent "
--- OUTSIDE RECORDS SUMMARY | 2019-08-03 05:41 | XMS REPORT | Summary of Care ---
:1990 Author Organization [facility] Address [address] [place] [address] Care Team Providers Name Role Phone Stella Hanley [facility] Primary Care Provider [phone] Encounter Details Date Type Department Care Team Description 05/21/2019 Orders Only [facility] Doctor Unassigned, No [address] [facility] Name [place] [id number] [address] [place] [phone] Allergies No Known Allergiesdocumented as of this encounter (statuses as of 06/17/2019) Medications Medication Sig Dispensed Refills Start Date [...] as of this encounter (statuses as of 06/17/2019) Active Problems Problem Noted Date Anemia of mother in , antepartum 05/07/2019 Supervision of high-risk 12/18/2018 Multiparity 12/18/2018 Over weight 12/18/2018 Estimated Date of Delivery Comments Yes 08/07/2019 Based on last menstr ual period of 10/31/2018 documented as of this encounter (statuses as of 06/17/2019) Immunizations Name Administration Dates Next Due Tdap [...] filedocumented in this encounter Plan of Treatment Health [...] Name Priority Date/Time Associated Diagnosis Comme nts STERILIZATION CONSENT Routine 05/21/2019 12:01 AM FORM CDT documented in this encounter Results Not on filedocumented in this encounter Insurance Payer Benefit Plan / Subscriber ID Effective Phone Address [facility] Group Dates [facility] [id number] 2019-Prese [phone] HMO HEALTH CHOICE HEALTH CHOICE [phone] [place] [address] documented as of this encounter Advance Directives Name Relationship Healthcare Agent Relationship Co mmunication Pop Echevarria Friend Primary healthcare agent
[2019-08-03] MEDS ORDERED: Ringers Lactate 1,000 ML IV PRN (06:35)
[2019-08-03] MEDS ORDERED: CARBOPROST TROME 250 MCG/ML IM PRN ×2 (06:35→10:03)
[2019-08-03] MEDS ORDERED: METHYLERGONOVINE 0.2MG/ML AMP IM PRN ×2 (06:35→10:03)
[2019-08-03] MEDS ORDERED: BUTORPHANOL 1 MG/ML INJ IV PRN (06:35)
[2019-08-03] MEDS ORDERED: PROMETHAZINE INJ 25 MG/ML AMP IV PRN (06:35)
[2019-08-03] MEDS ORDERED: OXYTOCIN/LR 20 UNIT/1,000 ML BAG IV ONE (06:57)
[2019-08-03] MEDS ORDERED: LIDOCAINE 1% MPF 30 ML VIAL ONE (06:58)
[2019-08-03] MEDS ORDERED: Ringers Lactate 1,000 ML IV SCH (07:00)
[2019-08-03 07:01] LABS: Absolute Lymphocytes (CBC) 1.7 K/uL (0.7-4.9); Basophils % 0.3 % (0-1.3); Hematocrit 33.9 % (36.0-45.0); Lymphocytes % 14.2 % (15.3-44.8); MPV 8.7 fL (7.6-11.3); RBC Red Blood Cell Count 4.25 M/uL (3.86-4.86)
[2019-08-03 07:33] VITALS: BMI 30.2
--- NOTE | 2019-08-03 09:00 | PREOPHP ---
Date of Admission: 08/03/2019 History Of Present Illness: Ms. Echevarria is a 29-year-old female, 2, para 1-0-0- 1, at term, followed through the [facility], who presents in labor, noted to be 6 cm dilated. She h as been followed through the clinic without complications during this . Past Medical History: Includes 1 prior vaginal delivery without complications. She has no other sig nificant hospitalizations, accidents, illnesses, injuries. Medications: She is on no medications other than vitamin. Allergies: SHE HAS NO KNOWN ALLERGIES. Social History: She does not smoke. Family History: Noncontributory. Review of Systems: She reports no recent cough, cold, fever, or chills. No recent nausea or vomiting. No breast knots or lumps. No bowel or bladder issues. Physical Examination: General: Reveals pleasant female, in minimal distress. Neck: Supple without adenopathy or thyromegaly. Lungs: Clear. Cardiac: Regular rate and rhythm without murmurs. Breasts: Not examined. Abdomen: Estimated weight is 6+ pounds. Pelvic: Cervix noted to be 6-7 cm, vertex presentation at a +1 station. Extremities: No cyanosis, clubbing, or edema. Impression: Term , active labor. Plan: The patient will be admitted. Verbal report of strep status is negative. RADHA/UCHE Voice ID: [id number]
--- NOTE | 2019-08-03 10:02 | P.BOP ---
Preoperative diagnosis: Term IUP, active labor Postoperative diagnosis: SCVD viable male Primary procedure: SCVD Secondary procedure: Repair of midline 2 degree laceration Other procedure(s): local infiltration anesthesia Anesthesia: Local Complications: None Transferred to: Other (271) Condition: Good
[2019-08-03] MEDS ORDERED: ONDANSETRON 4 MG (ODT) TAB PO PRN (10:03)
[2019-08-03] MEDS ORDERED: METHYLERGONOVINE 0.2 MG TAB PO PRN (10:03)
[2019-08-03] MEDS ORDERED: ACETAMINOPHEN 500 MG TAB PO PRN (10:03)
[2019-08-03] MEDS ORDERED: IBUPROFEN 600 MG TAB PO PRN (10:12)
[2019-08-03] MEDS ORDERED: OXYTOCIN/LR 20 UNIT/1,000 ML BAG IV SCH (11:00)
--- NOTE | 2019-08-04 10:39 | DN ---
Surgeon: Rajeev Kebede MD Ms. Echevarria is 29-year-old [place] female, 2, para 1-0-0-1, at 39 weeks' gestation follo wed by a physician in [place]. She presents to our Labor and Delivery unit, noted to be 6 cm dilated . She was admitted after artificial rupture of membranes and Pitocin augmentation of labor. She had artificial rupture of membranes. She had a first stage of labor of approximately 1 hour and 59 merly eliazar, second stage of labor of 38 minutes. She delivered by spontaneous controlled vaginal delivery a 7-pound 1-ounce male . The was delivered vertex OA. The cord was clamped, cut, and af ter delayed cord clamping, the cord was clamped, cut, and the placed on mother's upper abdomen . Cord blood was obtained. The placenta was spontaneously expelled and appeared to be intact. She suffered a second-degree perineal laceration at the time of delivery. This was repaired with local i nfiltration with 1% Xylocaine and 3-0 Vicryl suture in the usual fashion. Quantitative blood loss wa s 247 mL. The patient tolerated procedures well. RADHA/UCHE Voice ID: [id number] Report ID: [id number]
[2019-08-04 13:35] VITALS: BP 110/72; TEMP 98.7
--- NOTE | 2019-08-04 19:33 | DS ---
Date of Discharge: 08/04/2019 Final Hospital Discharge Diagnosis: 39-week , delivered. Complications: None. Procedures: Artificial rupture of membranes, spontaneous controlled vaginal delivery of viable male , repair of second-degree laceration. Local infiltration via anesthesia. Hospital Course: The patient is a 29-year-old [place]ian female, 2, para 1-0-0-1, follow ed through the [facility], presents to our Labor And Delivery unit in labor. She had an uneventful labor and delivery of a 7-pound 1-ounce male infant, 9 and 9, was dismissed on the first postpa rtum day, ambulatory, on a select diet with routine post vaginal delivery activity restrictions. Lab work included an admission hemoglobin and hematocrit of 10.9 and 33.9 with indices probably consiste nt with iron deficiency anemia. She had a dismissal hematocrit of 34.3. RPR is pending. She is Rh positive blood type, was dismissed to continue taking her vitamins with usual vag inal delivery activity restrictions. RADHA/UCHE Voice ID: [id number] Report ID: [id number]
[2019-08-04 22:42] LABS: RPR (Rapid Plasma Reagin) NON-REACT (NON-REACT)
[2019-08-06 18:21] LABS: HBsAG Nonreactive (Nonreactive)
== END 2019-08-04 13:15 | disposition home or self-care (01) | DRG 807 ==
LOC: L&D 05:34 → 2ND-WC 06:21
PROVIDERS: ADMIT Specialist; ATTEND Specialist
PROC: 10E0XZZ Delivery of Products of Conception, External Approach (ICD-10-PCS; principal; 2019-08-04)
PROC: 0KQM0ZZ Repair Perineum Muscle, Open Approach (ICD-10-PCS; 2019-08-04)
PROC: 10907ZC Drainage of Amniotic Fluid, Therapeutic from Products of Conception, Via Natural or Artificial Opening (ICD-10-PCS; 2019-08-04)
PROC: 3E033VJ Introduction of Other Hormone into Peripheral Vein, Percutaneous Approach (ICD-10-PCS; 2019-08-04)
DX: O70.1 Second degree perineal laceration during delivery (principal); Z37.0 Single live birth; Z3A.39 39 weeks gestation of pregnancy
CPT/HCPCS: 36415; 85014; 85025; 86592; 86901; 87340; J2210; J2590; J7120